=== PATIENT | male | born 1975 | race Caucasian/White ===

== ENCOUNTER 2018-05-30 10:20 | Outpatient (RCR) | payer OTHER, SELFPAY | END 2018-07-02 13:30 | disposition home or self-care (01) | LOC: PT 10:20 | PROVIDERS: Family Provider Nurse Practitioner Family; PCP Nurse Practitioner Family; Visit Provider Nurse Practitioner Family | DX: M54.5 Low back pain (principal); M51.26 Other intervertebral disc displacement, lumbar region | CPT/HCPCS: 97163 ==

== ENCOUNTER 2018-08-29 13:00 | Outpatient (RCR) | payer OTHER, SELFPAY | END 2018-09-04 15:02 | disposition home or self-care (01) | LOC: PT 13:00 | PROVIDERS: Visit Provider Nurse Practitioner Family | DX: M51.36 Other intervertebral disc degeneration, lumbar region (principal) | CPT/HCPCS: 97010; 97012; 97014; 97110; 97163; G0283 ==

== ENCOUNTER 2018-11-22 11:00 | Outpatient (RCR) | payer OTHER, SELFPAY | END 2018-11-22 11:05 | disposition home or self-care (01) | LOC: PT.CARL 11:00 | PROVIDERS: Visit Provider Nurse Practitioner Family | DX: S33 Dislocation and sprain of joints and ligaments of lumbar spine and pelvis (principal) | CPT/HCPCS: 97110; 97163 ==

== ENCOUNTER → 2019-01-10 10:15 | Outpatient (CLI) | payer OTHER, SELFPAY ==
[2019-01-10 13:56] LABS: Basophils # 0.1 K/mm3 (0-0.2); Eosinophils # 0.2 K/mm3 (0.0-0.4); Eosinophils % 2.5 % (0.1-12.0); Hematocrit 45.3 % (42.0-52.0); Hemoglobin 15.3 g/dL (14.1-18.0); Lymphocytes # 1.9 K/mm3 (0.7-4.5); Lymphocytes % 23.8 % (10-50); Mean Corpuscular HGB Conc 33.7 g/dL (31.8-35.4); Mean Corpuscular Hemoglobin 31.6 pg (27.0-31.2); Mean Corpuscular Volume 93.5 fl (80-94); Mean Platelet Volume 7.9 fl (7.4-10.4); Monocytes # 0.5 K/mm3 (0.1-1.0); Monocytes % 6.1 % (1.7-9.3); Neutrophils # 5.2 K/mm3 (1.8-7.8); Neutrophils % 66.6 % (37.0-80.0); Platelet Count 300 K/mm3 (142-424); Red Blood Count 4.84 M/mm3 (4.60-6.20); Red Cell Distribution Width 14.4 % (11.5-17.5); White Blood Count 7.9 K/mm3 (4.8-10.8)
[2019-01-10 14:06] LABS: Alanine Aminotransferase 19 U/L (12-78); Albumin Level 3.6 gm/dL (3.4-5.0); Albumin/Globulin Ratio 1.1 (1.1-1.8); Alkaline Phosphatase 77 U/L (46-116); Aspartate Amino Transferase 26 U/L (15-37); Bilirubin,Total 0.9 mg/dL (0.2-1.0); Blood Urea Nitrogen 6 mg/dL (7-18); Calcium 8.9 mg/dL (8.5-10.1); Carbon Dioxide 27 mmol/L (21.0-32.0); Chloride 102 mmol/L (98-107); Estimated Glomerular Filt Rate 82 ml/min (>60); GFR (African American) 99 ML/MIN (>60); Globulin 3.3 gm/dl (1.3-3.2); Glucose 90 mg/dL (74-106); Sodium 139 mmol/L (136-145); Total Protein,Serum 6.9 gm/dL (6.4-8.2)
[2019-01-10 14:07] LABS: C-Reactive Protein < 0.2 mg/L (0.0-0.9)
[2019-01-10 14:59] LABS: Erythrocyte Sedimentation Rate 8 mm/hr (0-15)
== END ==
PROVIDERS: PCP Nurse Practitioner Family; Visit Provider Internal Medicine Infectious Disease
DX: L03.312 Cellulitis of back [any part except buttock and flank] (principal); T81.42XD Infection following a procedure, deep incisional surgical site, subsequent encounter; B95.0 Streptococcus, group A, as the cause of diseases classified elsewhere
CPT/HCPCS: 36415; 80053; 85025; 85651; 86140

== ENCOUNTER → 2019-12-02 13:55 | Outpatient (POV) | payer OTHER, SELFPAY ==
[2019-12-02 14:25] VITALS: BP 148/98; PULSE 103; RESP 18; O2SAT 99; BMI 18.8
--- NOTE | 2019-12-03 09:18 | HMH.PMCON ---
Assessment and Plan (1) Post laminectomy syndrome Current visit: Yes Status: Chronic Category: Medical Code(s): M96.1 - Postlaminectomy syndrome, not elsewhere classified - Assessment and plan all Dx Assessment and Plan for all problems:: We will schedule the patient for 2 weeks. He is going to review the material that I provided him in regards to a neurostimulator. I will follow-up with him at that time reassess his symptoms. He is been instructed to call the office if he has any issues prior to his next appointment. Dr. Stewart has reviewed this note and agrees with this plan of care. This note was dictated using voice recognition software and may contain errors or omissions HPI - Data of Consult Consult date: 12/02/19 Requesting Physician: Collette Taylor APRN Primary Care Provider: Rhoda Zuniga - Consult Narrative Reason for consult: Back pain, leg pain History of present illness: Mr. Hearn is a 43 year old male who presents today for consultation in regards to his back and leg pain. Patient had an injury at work and recently had surgery. His surgery took place December of last year he has had continual pain since. He states his pain is worse in his back and down his right leg. However he does go down both legs at times. Patient states increased activity standing or sitting for prolonged periods of time increases pain will gabapentin Aleve decreases pain. He has been to physical therapy with no true relief. Patient has had physical therapy, chiropractic therapy along with injections in the past. Patient did not get any relief from any of these. Patient and I discussed a spinal cord stimulator I do believe it would benefit him. I discussed in great detail the process in the trialing process. He does have a psychological evaluation at states that he should be a good candidate for this however he would need to do some additional therapy. Patient and I discussed a [employer] system I do believe that this would be the best for him given his age and the MRI compatibility of the system. Patient was given information in regards to this. He is going to return in 2 weeks to discuss this. He rates his pain today a 6 out of 10 CC: Collette Taylor APRN [facility] History I have reviewed the patient's past medical history: Yes *Have you ever received a pneumonia vaccine?: Yes *Have you received a flu vaccine this season?: Yes Other Medical History: Reports: Arthritis Other Surgeries: Yes: Other Amputation: No Fractures: No - *Social History Smoking Status: Current every day smoker Tobacco Type: cigarettes # Packs/Day (cigarettes): 1 Alcohol Intake: current Alcohol Intake Frequency:: 0-2 drinks per day *Occupational Status:: other Housing: house Household Members: other *Travel in the last 8 weeks: None Family Hx:: Unable to obtain Review of Systems - Review of Systems ROS General: no recent weight change, no fever, no sleep disturbances Respiratory: no cough, no shortness of air, no recurring pulmonary infections Cardiovascular/Peripheral Vascular: No chest pain, No palpitations, no edema, no shortness of breath. Gastrointestinal: no new onset incontinence, normal bowel movements reported Genitourinary: no new onset incontinence Musculoskeletal: Back pain, leg pain Psychiatric: normal mood/ affect, Neurological: [denies new onset weakness in extremities], [denies new onset balance issues] Meds Allergies Allergy/AdvReac Type Severity Reaction Status Date / Time No Known Allergies Allergy Unverified 09/05/17 15:01 Objective Vital signs: Pulse Resp BP Pulse Ox 103 H 18 148/98 H 99 12/02/19 14:25 12/02/19 14:25 12/02/19 14:25 12/02/19 14:25 Narrative: Physical Exam General: Alert and oriented x3, no acute distress, pleasant and cooperative, [on room air] Lungs: Resps E/U, Symmetrical chest expansion, Eyes: PERRL Musculoskeletal: Flexion and extensio
== END ==
PROVIDERS: PCP Nurse Practitioner Family; Visit Provider Clinical Nurse Specialist Family Health
DX: M96.1 Postlaminectomy syndrome, not elsewhere classified (principal)
CPT/HCPCS: 99202

== ENCOUNTER → 2020-01-06 10:33 | Outpatient (POV) | payer OTHER, SELFPAY ==
[2020-01-06 11:16] VITALS: BP 144/96; PULSE 78; RESP 18; TEMP 36.9; O2SAT 98; BMI 19.2
--- NOTE | 2020-01-06 11:18 | P.CONS_ITS ---
[facility] Pain Management SOAP Note Subjective:: he is a pleasant 44-year-old white male who presents today for follow-up after reviewing information in regards to neurostimulator. He had an injury at work and had surgery. His surgery took place December of last year. He states he is in continual pain since. He states his pain is worse in his back and down his right leg. Patient states increased activity standing or sitting for prolonged periods of time increased pain while gabapentin helps decrease his pain. He is tried physical therapy, chiropractic therapy, medication therapy, injections. Patient states that he is got no relief from these therapies. Patient and I discussed a neurostimulator which has been discussed with him in the past by other pain management physicians. He states he is uninterested it due to his potential for infection. Patient rates his pain a 7 out of 10 today. At this time there is nothing we can offer him at our clinic. I discussed with him if he is interested in medication management there are other physicians that are able to do that however this is not our policy. ROS General: no recent weight change, no fever, no sleep disturbances Respiratory: no cough, no shortness of air, no recurring pulmonary infections Cardiovascular/Peripheral Vascular: No chest pain, No palpitations, no edema, no shortness of breath. Gastrointestinal: no new onset incontinence, normal bowel movements reported Genitourinary: no new onset incontinence Musculoskeletal: Back pain, leg pain Psychiatric: normal mood/ affect Neurological: [denies new onset weakness in extremities], [denies new onset balance issues] Objective:: Physical Exam General: Alert and oriented x3, no acute distress, pleasant and cooperative, [on room air] Lungs: Resps E/U, Symmetrical chest expansion, Eyes: PERRL Musculoskeletal: Flexion and extension of lumbar spine somewhat guarded secondary to pain, deep tendon reflexes normal, strength in upper and lower extremities [5/5], [abnormal gait noted] Neurological: speech clear, customer support engineer equal, no gross sensory deficits Assessment:: Postlaminectomy syndrome Plan:: At this point there is nothing we can offer him in the clinic. I have given him names of other physicians if he wants to pursue medication management. Dr. Stewart has reviewed this note and agrees with this plan of care. This note was dictated using voice recognition software and may contain errors or omissions [facility] History I have reviewed the patient's past medical history: Yes *Have you ever received a pneumonia vaccine?: Yes *Have you received a flu vaccine this season?: Yes Other Medical History: Reports: Arthritis Other Surgeries: Yes: Other Amputation: No Fractures: No - *Social History Smoking Status: Current every day smoker Tobacco Type: cigarettes # Packs/Day (cigarettes): 1 Alcohol Intake: current Alcohol Intake Frequency:: 0-2 drinks per day *Occupational Status:: other Housing: house Household Members: other *Travel in the last 8 weeks: None Family Hx:: Unable to obtain
== END ==
PROVIDERS: PCP Nurse Practitioner Family; Visit Provider Clinical Nurse Specialist Family Health
DX: M96.1 Postlaminectomy syndrome, not elsewhere classified (principal)
CPT/HCPCS: 99212

== ENCOUNTER 2021-05-14 13:01 | Emergency (ER) | payer MEDICAID, SELFPAY ==
[2021-05-14 14:15] VITALS: BP 151/87; PULSE 76; RESP 16; TEMP 36.6; O2SAT 99; BMI 20.9
--- NOTE | 2021-05-14 14:47 | HMH.EDUTC ---
[facility] [place] Disposition Clinical Impression: Exposure to COVID-19 virus Disposition: Home, Self-Care Condition on Discharge: Good Instructions: DI for COVID-19 (Suspected or Confirmed ), Preventing the Spread of Coronavirus Discharge Instructions Additional Instructions: Drink plenty of fluids. Take tylenol for pain or fever. Return if you begin to have difficulty breathing. Follow up with your regular doctor. GO TO THE ER FOR ANY WORSENING SYMPTOMS Quarantine until you know the results of your covid-19 test. If it is positive, the health department should call you and give you further instructions about your length of Quarantine and other things. Notify your school or workplace of your results and follow their instructions regarding return to work/school. Referrals: Christine Amaya APRN [Primary Care Provider] - Time of Disposition: 14:48 Medical Decision Making - Medical Records Medical records reviewed: No: I reviewed the patient's medical records. - Chuck Inquiry Pt receiving controlled substance: No Vital Signs: 05/14/21 14:15 05/14/21 14:48 Temperature 97.8 F 97.8 F Temperature Source Oral Pulse Rate 76 Pulse Rate [Right Brachial] 76 Respiratory Rate 16 16 Blood Pressure 151/87 H Blood Pressure [Right Arm] 151/87 H Blood Pressure Mean [Right Arm] 108 Blood Pressure Source [Right Arm] Automatic Cuff Blood Pressure Position [Right Arm] Sitting 02 Sat by Pulse Oximetry 99 Oxygen Delivery Method Room Air [facility] [place] HPI - General Stated complaint: covid exposure Time Seen by Provider: 05/14/21 14:47 Mode of Arrival: Ambulatory Source of Information: Patient Limitations: No Limitations Description of Symptoms (Recalled from Triage Doc. by RN): COVID TEST D/T EXPOSURE. DENIES SYMPTOMS HEENT Symptoms (Recalled from RN notes): No Resp Symptoms (Recalled from RN notes): No Skin Symptoms (Recalled from RN notes): No MS Symptoms (Recalled from RN notes): No Functional Status (Recalled from RN notes): WNL - History of Present Illness Provider Complaint: He was exposed to covid-19 at his job 5 days ago. He denies any symptoms, but he needs to be tested to be allowed to return to work. - Related Data Allergies Allergy/AdvReac Type Severity Reaction Status Date / Time No Known Allergies Allergy Verified 05/14/21 14:38 - Worker's Comp Is this a Worker's Comp case?: No [facility] History - Hepatitis A Screen Drug use history?: No High risk sexual behaviors?: No History of sexually transmitted infection?: No Currently employed?: No Childcare worker?: No Do you have indoor plumbing?: Yes Do you have electricity?: Yes Attestation statement:: This patient has been screened for Hepatitis A risk factors. I have reviewed the patient's past medical history: Yes Other Medical History: Reports: Arthritis Other Surgeries: Yes: Other Amputation: No Fractures: No - Social History Smoking Status: Current every day smoker Tobacco Type: cigarettes # Packs/Day (cigarettes): 1 Alcohol Intake: current Alcohol Intake Frequency:: 0-2 drinks per day Occupational Status: other Housing: house Household Members: other Family Hx:: Unable to obtain ROS Obtained: Yes All systems reviewed & no additional complaints - Constitutional Constitutional: Reports system reviewed and no additional complaints, except as docu - Eyes Eyes: Reports system reviewed and no additional complaints, except as docu - ENT Ears, Nose, Mouth, and Throat: Reports system reviewed and no additional complaints, except as docu - Cardiovascular Cardiovascular: Reports system reviewed and no additional complaints, except as docu - Respiratory Respiratory: Reports system reviewed and no additional complaints, except as docu - Gastrointestinal Gastrointestingal: Reports: system reviewed and no additional complaints, except as docu Physical Exam - General General appearance: alert, in no apparent distres
[2021-05-14 14:48] VITALS: BP 151/87; PULSE 76; RESP 16; TEMP 36.6; O2SAT 99
== END 2021-05-14 14:52 | disposition home or self-care (01) ==
PROVIDERS: Emergency Provider Nurse Practitioner Family; PCP Nurse Practitioner
DX: Z20.822 Contact with and (suspected) exposure to COVID-19 (principal); F17.210 Nicotine dependence, cigarettes, uncomplicated
CPT/HCPCS: 99202; G0463; U0003

== ENCOUNTER 2021-07-14 13:54 | Emergency (ER) | payer MEDICAID, SELFPAY ==
[2021-07-14 14:25] VITALS: BP 0/0; PULSE 0; RESP 0; TEMP -17.7; TEMP 0
== END 2021-07-14 14:27 | disposition left against medical advice (07) ==
LOC: UTC 13:57
PROVIDERS: Emergency Provider Nurse Practitioner Family; PCP Nurse Practitioner Family
DX: Z53.21 Procedure and treatment not carried out due to patient leaving prior to being seen by health care provider (principal)

== ENCOUNTER → 2022-10-04 09:34 | Outpatient (CLI) | payer MEDICAID, SELFPAY ==
--- NOTE | 2022-10-04 09:43 | US_ITS ---
FINAL REPORT CLINICAL HISTORY: L INGUINAL HERNIA FINDINGS: US EXTREMITY, NONVASCULAR, COMPLETE Sonographic images were obtained of the bilateral inguinal canals. There is an enlarged 3.6 cm lymph node with a benign ultrasound appearance in the right inguinal canal. There is no fluid collection or mass. There are several small benign-appearing lymph nodes in the left inguinal canal measuring up to 1.9 cm. There is likely a left inguinal hernia that may contain a loop of bowel. IMPRESSION: Bilateral inguinal lymph nodes having a benign ultrasound appearance. Probable left inguinal hernia. Consider CT. Reviewed, Interpreted and Dictated by Shobha Feliz MD Transcribed by Tony Javier Authenticated and [facility]
== END ==
PROVIDERS: PCP Nurse Practitioner Family; Visit Provider Nurse Practitioner Family
DX: K40.90 Unilateral inguinal hernia, without obstruction or gangrene, not specified as recurrent (principal)
CPT/HCPCS: 76700

== ENCOUNTER → 2022-11-09 14:07 | Outpatient (CLI) | payer MEDICAID, SELFPAY ==
[2022-11-09 14:12] LABS: Microscopic, Urine URINE MICROSCOPIC (MICROSCOPIC)
[2022-11-09 15:39] LABS: Anion Gap 7.2 mEq/L (5-15); Blood Urea Nitrogen 8 mg/dl (9-20); Calcium 9.1 mg/dl (8.4-10.2); Carbon Dioxide 26 mmol/L (22.0-30.0); Chloride 103 mmol/L (98-107); Estimated Glomerular Filt Rate 104 ml/min (>60); GFR (African American) 126 ML/MIN (>60); Glucose 72 mg/dl (74-100); Potassium 4.2 mmoL/L (3.5-5.1); Sodium 132 mmol/L (136-145)
[2022-11-09 15:43] LABS: Basophils # 0.1 K/mm3 (0-0.2); Basophils % 1.4 % (0.1-2.0); Eosinophils # 0.3 K/mm3 (0.0-0.4); Eosinophils % 3.3 % (0.1-12.0); Hematocrit 48.7 % (42.0-52.0); Lymphocytes # 1.5 K/mm3 (0.7-4.5); Lymphocytes % 20.2 % (10-50); Mean Corpuscular HGB Conc 32.9 g/dL (31.8-35.4); Mean Corpuscular Volume 97.3 fl (80-94); Mean Platelet Volume 8.4 fl (7.4-10.4); Monocytes # 0.6 K/mm3 (0.1-1.0); Monocytes % 7.4 % (1.7-9.3); Neutrophils # 5.1 K/mm3 (1.8-7.8); Neutrophils % 67.8 % (37.0-80.0); Platelet Count 271 K/mm3 (142-424); Red Cell Distribution Width 13.9 % (11.5-17.5); White Blood Count 7.6 K/mm3 (4.8-10.8)
[2022-11-09 19:13] LABS: Appearance,Urine CLEAR (Clear); Bilirubin,Urine Negative (Negative); Blood, Urine Negative (Negative); Color,Urine YELLOW (Yellow); Glucose,Urine (UA) Negative (Negative); Ketones,Urine Negative (Negative); Leukocyte Esterase,Urine Negative (Negative); Nitrate,Urine Negative (Negative); Protein,Urine Negative (Negative); Specific Gravity, Urine 1.015 (1.005-1.030); Urobilinogen,Urine 0.2 EU/dl (0.2)
[2022-11-09 19:40] LABS: Squamous Epithelial Cell,Urine Occasional #/hpf (0-5)
== END ==
PROVIDERS: PCP Nurse Practitioner Family; Visit Provider Surgery
DX: Z01.812 Encounter for preprocedural laboratory examination (principal); K40.90 Unilateral inguinal hernia, without obstruction or gangrene, not specified as recurrent
CPT/HCPCS: 36415; 80048; 81001; 85025

== ENCOUNTER 2022-11-10 09:14 | Day surgery (SDC) | payer MEDICAID, SELFPAY ==
[2022-11-08 14:00] VITALS: BMI 20.3
[2022-11-10] VITALS (10 sets, daily range): BP systolic 111–154; BP diastolic 71–92; PULSE 78–109; RESP 16–18; TEMP 36.2–43; O2SAT 94–97
--- NOTE | 2022-11-10 10:49 | EXP.ANES.CKL ---
[facility] Disclaimer: The information contained in this section may have been updated after the patient was seen, as this information can be updated by other users. Medical History Bipolar 1 disorder Surgical History History of back surgery History of mandibular surgery Family History Other Family history of cancer Family history of diabetes mellitus type II Family history of myocardial infarction Family history of stroke Social History (Updated 11/10/22 @ 09:46 by Rimma Zhao RN) Smoking Status: Current every day smoker tobacco type: cigarettes packs per day: 1 pack-years: 20 alcohol intake: current substance use type: denies use current occupational status: disabled Travel in the last 8 weeks: None household members: other housing: house marital status: education level: high school special betty needs: No agree to transfusion: No do you feel safe at home: Yes victim of physical abuse: No victim of emotional abuse: No victim of sexual abuse: No would you like helpful sources: No [facility] Anesthesia Checklist Patient Identification Patient Identification: Arm Band Structural Data Admitted From: Home Planned Operative Procedure/s: Left Open Inguinal Hernia Repair Consent for Planned Operative Procedure(s) Verified: Yes Verified Documents: Surgical Consent and History and Physical NPO Status Verified Time NPO: 00:00 Additional verifications Anesthesia Reactions: No Hx Blood Transfusions: No Blood Transfusion Reaction: No Airway Assessment C-Spine Mobility Assessed: Yes TMJ Mobility Assessed: Yes Dentition: Poor Dentition Neurological Assessment Level of Consciousness: Awake and Alert Anesthesia Plan Anesthesia Risk discussed: Yes Anesthesia Plan: Verified ASA Class: II Anesthesia Type: General
--- NOTE | 2022-11-10 12:13 | P.PN_ITS ---
[facility] Disclaimer: The information contained in this section may have been updated after the patient was seen, as this information can be updated by other users. Medical History Bipolar 1 disorder Surgical History History of back surgery History of mandibular surgery Family History Other Family history of cancer Family history of diabetes mellitus type II Family history of myocardial infarction Family history of stroke Social History (Updated 11/10/22 @ 09:46 by Rimma Zhao RN) Smoking Status: Current every day smoker tobacco type: cigarettes packs per day: 1 pack-years: 20 alcohol intake: current substance use type: denies use current occupational status: disabled Travel in the last 8 weeks: None household members: other housing: house marital status: education level: high school special betty needs: No agree to transfusion: No do you feel safe at home: Yes victim of physical abuse: No victim of emotional abuse: No victim of sexual abuse: No would you like helpful sources: No [facility] Anesthesia Checklist Patient Identification Patient Identification: Arm Band Structural Data Admitted From: Home Planned Operative Procedure/s: Left Open Inguinal Hernia Repair Consent for Planned Operative Procedure(s) Verified: Yes Verified Documents: Surgical Consent and History and Physical NPO Status Verified Time NPO: 00:00 Additional verifications Anesthesia Reactions: No Hx Blood Transfusions: No Blood Transfusion Reaction: No Airway Assessment C-Spine Mobility Assessed: Yes TMJ Mobility Assessed: Yes Dentition: Poor Dentition
--- NOTE | 2022-11-10 14:14 | SUR.OPER ---
1330- family updated of pt current status via ce escobedo in preop
--- NOTE | 2022-11-10 14:26 | P.OP_ITS ---
Date of procedure: 11/10/22 Pre-op Diagnosis:: Left inguinal hernia Post-op Diagnosis:: Same Procedure performed:: Open left inguinal hernia repair Surgeon:: Marco Antonio Godoy MD Anesthesia: LMA Estimated blood loss (mL): 15 Operative findings:: Complex indirect defect Severe soft tissue thickening throughout canal Operative note:: After informed consent was obtained the patient was taken to the operating room and placed in the supine position. General anesthesia was induced and his abdomen and groin/scrotum were prepped and draped in a sterile fashion. After infiltration with local anesthetic an oblique incision was made in the left gr oin. The deep subcutaneous tissue was dissected with electrocautery through Venancio's fascia to the level of the external aponeurosis. The external aponeurosis was sharply opened to the level of the external ring. The contents of the canal were carefully elevated. Severe soft tissue thickening confirmed. A combination of sharp dissection, blunt dissection, and electrocautery was utilized to dissect the hernia sac free from surrounding tissue. Dense adhesions throughout this region were noted. The distal margin of the sac was carefully opened with Metzenbaum scissors to facilitate dissection. Once this dissection was complete the defect was reapproximated with running nondyed Vicryl suture. A large PerFix plug was then secured in position with interrupted Ethibond. The PerFix overlay was secured to the shelving edge inferiorly and fascial margin superiorly with interrupted Ethibond. The external aponeurosis was reapproximated with running Vicryl suture. Venancio's fascia was closed in the same manner. 3-0 Monocryl STRATAFIX was then used to close skin and sterile dressings were applied. The patient was transferred to recovery in stable condition after removal of his laryngeal mask airway. Condition: stable Disposition: PACU Specimens:: None Complications:: No immediate
--- NOTE | 2022-11-10 14:30 | EXP.ANES.I ---
[facility] Anesthesia Record Part I Anesthesia Record I Intake, IV Amount: 1,300 Estimated blood loss (mL): 15 Urine output (mL): 1,000 Blood Products used (#): none Blood Pressure: 121/86 SaO2: 97 Pulse Rate: 79 Respiratory Rate: 18 Temperature: 98.8 F Patient is:: Drowsy and Stable Stable to PACU at:: 14:25
[2022-11-10 16:33] LABS: Microscopic,Cath URINE MICROSCOPIC (MICROSCOPIC)
[2022-11-10 16:39] LABS: Appearance,Urine/Cath CLEAR (Clear); Bilirubin,Cath Negative (Negative); Blood, Urine/Cath Negative (Negative); Color,Urine/Cath YELLOW (Yellow); Glucose,Urine/Cath (UA) Negative (Negative); Ketones,Urine/Cath Negative (Negative); Leukocyte Esterase,Cath Negative (Negative); Nitrate,Cath Negative (Negative); Protein,Urine/Cath Negative (Negative); Specific Gravity, Urine/Cath <= 1.005 (1.005-1.030); Urobilinogen,Cath 0.2 EU/dl (0.2)
--- NOTE | 2022-11-11 13:30 | P.PNANES_ITS ---
[facility] Anesthesia Record Part II Anesthesia Record Part II Discharge Time: 14:55 Destination: Surgical Day Care (OP Surgery) PACU nurse assessment reviewed?: Yes Patient Condition:: Good Anesthesia Complications:: None Swallowing reflex intact?: Yes Cyanosis?: No Blood Pressure: 142/85 Pulse Rate: 99 Temperature: 97.2 F Mental Status: Alert & Oriented Pain level:: 0 Nausea and/or vomitting:: None Intake, IV Amount: 0
[2022-11-11 13:31] VITALS: BP 142/85; PULSE 99; TEMP 36.2
== END 2022-11-10 15:29 | disposition home or self-care (01) ==
PROVIDERS: PCP Nurse Practitioner Family; Visit Provider Surgery
PROC: (CPT 49505; principal; 2022-11-10 10:45)
DX: K40.90 Unilateral inguinal hernia, without obstruction or gangrene, not specified as recurrent (principal); F17.210 Nicotine dependence, cigarettes, uncomplicated; Z79.899 Other long term (current) drug therapy
CPT/HCPCS: 49505; 81001; 96374; J2405

== ENCOUNTER 2024-01-05 16:44 | Emergency (ER) | payer MEDICAID, SELFPAY ==
[2024-01-05 16:45] VITALS: BP 134/99; PULSE 72; RESP 17; TEMP 36.6; O2SAT 98; BMI 20.9
--- NOTE | 2024-01-05 17:24 | ED_ITS ---
Discharge Plan Disposition Patient Disposition: Home, Self-Care Chief Complaint: Eye Problems Prescriptions Prescriptions: No Action Vraylar 1.5 mg capsule 1.5 mg PO DAILY lamotrigine 25 mg tablet 25 mg PO DAILY hydrocodone-acetaminophen 5-325 mg tablet 1 tab PO Q6H PRN (Reason: post-op pain) Qty: 17 0RF Referrals Follow up/Referrals: Rhoda Zuniga [Primary Care Provider] - See instructions Activity Restrictions/Add. Instructions Additional Instructions/Restrictions: Ointment 3 times daily for 5 days. Call your family doctor to establish care for this visit to the emergency department and schedule follow-up within 48 hours to ensure improvement. If you have any worsening of your condition or any other concerning signs or symptoms, return to the emergency department or your primary care doctor for further evaluation. Clinical Impressions Clinical Impression: Irritation of right eye, Acute conjunctivitis of right eye Discharge ED Provider: Osbaldo Parra General Adult HPI General Chief complaint: Eye Problems Stated complaint: RT eye irritation Time Seen by Provider: 01/05/24 16:51 Mode of Arrival: Ambulatory Source of Information: Patient Limitations: No Limitations Description of Symptoms (Recalled from ER Triage Doc. by RN): Patient reports redness and irritation of right eye for 3 days. Patient states he feels like something is scratching his eye when he blinks or rubs eye. Redness noted upon assessment. History of Present Illness HPI narrative: 40-year-old male no relevant medical history presenting with right eye irritation. Daughter has a viral infection, I saw her a couple days ago. Patient states that his eye irritation started then. He uses [place] blower at work, thinks this may be related. No qipzt-tl-zimge contact, or other construction activities. no photophobia, vision changes, or any other concerns. Please note that above description of symptoms, in this electronic medical record under categorization of recalled from ER triage doctor by RN are reflective of an initial nursing assessment, however, is not reflective of my full history and physical exam that was personally taken and clarified. Consequentially, this preceding description of symptoms, which may include the patient's categorized chief complaint in the EMR, do not reflect my personal clinical impression, and the ultimate description of history of present illness and patient stated complaints should be deferred to this section of the note. Unless stated otherwise or congruent with this section of the note, additional signs, symptoms, or incongruence should be interpreted as inaccurate with my clinical impression. Related Data Home Medications Medication Instructions Recorded Confirmed cariprazine 1.5 mg capsule 1.5 mg PO DAILY Depression 10/19/22 11/10/22 (Vraylar) lamotrigine 25 mg tablet 25 mg PO DAILY Depression 11/08/22 11/10/22 Previous Rx's Medication Instructions Recorded hydrocodone 5 mg-acetaminophen 325 1 tab PO Q6H PRN post-op pain #17 11/10/22 mg tablet tabs Allergies Allergy/AdvReac Type Severity Reaction Status Date / Time No Known Allergies Allergy Verified 11/10/22 09:36 [facility] Disclaimer: The information contained in this section may have been updated after the patient was seen, as this information can be updated by other users. Medical History (Updated 01/05/24 @ 17:28 by Osbaldo Parra MD) Bipolar 1 disorder Surgical History History of back surgery History of mandibular surgery Family History Other Family history of cancer Family history of diabetes mellitus type II Family history of myocardial infarction Family history of stroke Social History (Updated 11/10/22 @ 09:46 by Rimma Zhao RN) Smoking Status: Current every day smoker tobacco type: cigarettes packs per day: 1 alcohol intake: current substance use type: denies use current occupational status: disabled Travel in the last 8 weeks: None household members: other housing: house marital status: education level: high school special betty needs: No agree to transfusion: No do you feel safe at home: Yes victim of physical abuse: No victim of emotional abuse: No victim of sexual abuse: No would you like helpful sources: No ROS Obtained: Yes All systems reviewed & no additional complaints except as documented Physical Exam General General appearance: alert and in no apparent distress Head Head exam: atraumatic and normocephalic Eye Eye exam: Present PERRL, EOMI and conjunctival redness (Right eye. No evidence of hyphema, proptosis, entrapment, conjunctival hemorrhage, pupillary changes, cellulitic change, obvious foreign body, or otherwise irregular ocular findings. Fluorescein exam without focal uptake.) ENT ENT exam: Present mucous membranes moist Neck Neck exam: Present normal inspection, full ROM and trachea midline Respiratory Respiratory exam: Absent respiratory distress, wheezes, stridor, accessory muscle use or prolonged expiratory phase Cardiovascular Cardiovascular exam: Present normal rhythm Abdominal Exam Abdominal exam: Present soft; Absent distention, tenderness, guarding, rebound or rigidity Extremities Exam Extremities exam: Absent edema Neurological Exam Neurological exam: Present alert, oriented X3, CN II-XII intact and normal gait; Absent motor sensory deficit Skin Skin exam: Present warm and dry; Absent diaphoresis or erythema Medical Decision Making Medical Records Medical records reviewed: Yes I reviewed the patient's medical records. Chuck Inquiry Pt receiving controlled substance: No Chuck was queried for this patient: No Vital Signs: 01/05/24 16:45 Temperature 97.9 F Temperature Source Oral Pulse Rate [Right] 72 Respiratory Rate 17 Blood Pressure [Right Arm] 134/99 H Blood Pressure Mean [Right Arm] 110 Blood Pressure Source [Right Arm] Automatic Cuff 02 Sat by Pulse Oximetry 98 Oxygen Delivery Method Room Air Orders (Tests/Meds): ED MEDICATIONS Discontinued Medications Generic Name Dose Route Start Last Admin Trade Name Freq PRN Reason Stop Dose Admin Fluorescein Sodium 1 mg 01/05/24 16:58 Fluorescein Sodium 1mg Strip OP 01/05/24 16:59 ONCE ONE Tetracaine HCl 0 ml 01/05/24 16:58 Tetracaine 0.5% Opth Noreen 15ml OP 01/05/24 16:59 ONCE ONE Medical Decision Narrative: Right eye. No evidence of hyphema, proptosis, entrapment, conjunctival hemorrhage, pupillary changes, cellulitic change, obvious foreign body, or otherwise irregular ocular findings. Fluorescein exam without focal uptake. History obtained with patient. Physical exam significant for Right eye. No evidence of hyphema, proptosis, entrapment, conjunctival hemorrhage, pupillary changes, cellulitic change, obvious foreign body, or otherwise irregular ocular findings. Fluorescein exam without focal uptake. Given this, this most likely represents viral conjunctivitis versus irritant conjunctivitis in the setting of dirt or other abnormality from working. Patient was given erythromycin ointment. Because patient at baseline without signs or symptoms of clinical decompensation, deemed appropriate for discharge. Results were relayed to patient who voiced understanding and were agreeable to outpatient management and follow up. I discussed my clinical impression with patient and answered all questions. At this time, the evidence for any other entities in the differential is insufficient to warrant any further testing or ED observation. This was explained as well. Advisory was given that persistent or worsening symptoms require further evaluation. I confirmed the understanding of this discussion. Critical Care Critical Care Time Critical Care Time: No
[2024-01-05 17:34] VITALS: BP 139/80; PULSE 74; RESP 16; TEMP 36.4; O2SAT 98
== END 2024-01-05 17:35 | disposition home or self-care (01) ==
PROVIDERS: Emergency Provider Emergency Medicine; PCP Nurse Practitioner Family
DX: H10.31 Unspecified acute conjunctivitis, right eye (principal); H53.141 Visual discomfort, right eye; F17.210 Nicotine dependence, cigarettes, uncomplicated
CPT/HCPCS: 99283

== ENCOUNTER 2024-04-15 09:06 | Outpatient (CLI) | payer BC, SELFPAY ==
--- NOTE | 2024-04-15 09:15 | XR_ITS ---
FINAL REPORT CLINICAL HISTORY: right wrist ganglion cyst COMPARISON: None FINDINGS: AP, oblique, and lateral views of the left wrist were obtained. There is no prior exam for comparison. There is no acute fracture or dislocation. The joint spaces are preserved. The soft tissues are normal. IMPRESSION: No acute osseous abnormality of the left wrist. If pain persists, MR is recommended. Reviewed, Interpreted and Dictated by Shobha Feliz MD Transcribed by Sherie Flaherty Authenticated and [facility]
== END 2024-04-15 23:59 | disposition home or self-care (01) ==
LOC: RAD 09:07
PROVIDERS: PCP Family Medicine; Visit Provider Physician Assistant
DX: M25.531 Pain in right wrist (principal)
CPT/HCPCS: 73110

== ENCOUNTER 2025-01-05 22:54 | Emergency (ER) | payer MEDICAID, SELFPAY ==
--- NOTE | 2025-01-05 22:46 | PC.NURSE ---
Pt brought back to room by EMS Pt states he has been drinking all day and had a witnessed seizure by EMS Pt then ripped out IV and walked to lobby
[2025-01-05 22:47] VITALS: BP 123/90; PULSE 88; RESP 20; TEMP 36.7; O2SAT 99
[2025-01-05 22:49] VITALS: BP 123/90; PULSE 88; RESP 20; TEMP 36.7; O2SAT 99
[2025-01-05 22:52] VITALS: BP 123/90; PULSE 88; RESP 0; RESP 20; TEMP 36.7; O2SAT 0; O2SAT 99; BMI 22.7
== END 2025-01-05 23:00 | disposition left against medical advice (07) ==
LOC: ER 22:55
PROVIDERS: Emergency Provider Emergency Medicine
DX: Z53.21 Procedure and treatment not carried out due to patient leaving prior to being seen by health care provider (principal)
CPT/HCPCS: 99211

== ENCOUNTER 2025-07-14 15:09 | Outpatient (CLI) | payer MEDICAID, SELFPAY ==
--- NOTE | 2025-07-14 15:13 | XR_ITS ---
FINAL REPORT CLINICAL HISTORY: Low back pain COMPARISON: None FINDINGS: 3 views of the lumbar spine were obtained. There is no evidence of fracture. There is no malalignment. The vertebrae are normal in height. Moderate disc space narrowing at L5-S1. Moderate facet sclerosis is noted in the lower lumbar spine. No paraspinous soft tissue abnormalities identified. IMPRESSION: Moderate degenerative changes without acute bony abnormality. Reviewed, Interpreted and Dictated by Melvin Gotti MD Transcribed by Sapna Washington Authenticated and [facility]
--- OUTSIDE RECORDS SUMMARY | 2025-07-14 15:56 | XMS_ITS | Clinical Summary ---
Author Organization [facility] Address [address] [place] [address] Care Team Providers Care Cardiac Care Nurse Name Role Phone Rhoda Zuniga APRN Primary Care Provider [phone] Allergies No known active allergies Medications cetirizine (zyrTEC) 10 MG tablet Take 10 mg by mouth Daily. 2 09/07/2018 Active cyclobenzaprine (FLEXERIL) 10 MG tablet Take 1 tablet by mouth 3 (Three) Times a Day As Needed for Muscle Spasms. 60 tablet 1 01/01/2019 Active rOPINIRole (REQUIP) 1 MG tablet Take 1 mg by mouth Daily. 5 03/25/2019 Active OXcarbazepine (TRILEPTAL) 300 MG tablet Take 300 mg by mouth 2 (Two) Times a Day. Active Dietary Management Product (RHEUMATE) capsule Take 1 capsule twice daily 180 capsule 1 05/07/2019 Active vitamin B-6 (PYRIDOXINE) 100 MG tablet Take 1 tablet by mouth Daily. 30 tablet 5 05/07/2019 Active Active Problems Problem Noted Date Diagnosed Date Diabetes mellitus type 2 in nonobese 05/07/2019 Current every day smoker 05/07/2019 Tobacco abuse counseling 05/07/2019 Physical deconditioning 05/07/2019 Chronic lumbar radiculopathy 05/07/2019 Postlaminectomy syndrome of lumbar region 2018 History of lumbar discectomy 05/06/2019 Alcohol abuse 04/18/2019 Cervical radiculopathy 04/18/2019 Headache 04/18/2019 Hyperreflexia 04/18/2019 Mixed anxiety depressive disorder 04/18/2019 Seizure disorder 04/18/2019 Resolved Problems Problem Noted Date Diagnosed Date Resolved Date Wound infection after surgery 01/04/2019 06/21/2019 Family History Medical History Relation Name Comments Alcohol abuse Mother Cancer Mother Diabetes Mother Hypertension Mother Mental illness Mother Seizures Mother Stroke Mother Relation Name Status Comments Mother Social History Tobacco Use Types Packs/Day Years Used Date Smoking Tobacco: Every Day Cigarettes 0.5 20 Smokeless Tobacco: Never Tobacco Cessation:Ready to Q uit: Yes; Counseling Given: Yes Alcohol Use Standard Drinks/Week Comments Yes 14 (1 standard drink = 0.6 oz pu re alcohol) Abuse Screen Answer Date Recorded Unsafe at Home or Work/School Not on file Feels Threatened by Someone? Not on file 05/2023 Does Anyone Keep You from Co ntacting Others or Doint Things Outside the Home? Not on file 06/26/2023 Physical Sign of Abuse Present Not on file 1 Housing Stability Answer Date Recorded Current Living Arrangements Not on file 05/2023 Potentially Unsafe Housing Conditions Not on bk e 06/26/2023 Family and Community Support Answer Moi e Recorded Help with Day-to-Day Activities Not on file 06/26/2023 Lonely or Isolated Not on file 06/26/2023 Employment Answer Date Recorded Do you want help finding or keeping work or a jasmin b? Not on file 06/26/2023 Disabilities Answer Date Recorded Concentrating, Remembering, or Making Decisions Difficulty Not on file 06/26/2023 Doing Errands Independently Difficulty Not on fi le 06/26/2023 Education Answer Date Recorded Help with school or training? Not on file Preferred Language Not on file 06/26/2023 Sex and Gender Information Value Date Recorded Sex Assigned at Not on file Legal Sex Male 11:35 AM EDT Gender Identity Not on file Sexual Orientation Not on file Last Filed Vital Signs Vital Sign Reading Time Taken Comments Blood Pressure 120/80 11/26/2019 1:14 PM EDT Pulse 65 05/07/2019 7:16 AM EDT Temperature 36.7 C (98.1 F) 11/26/2019 1:14 PM EDT Respiratory Rate 18 05/07/2019 7:16 AM EDT Oxygen Saturation 98% 05/07/2019 7:16 AM EDT Inhaled Oxygen Concentration - - Weight 66.2 kg (146 lb) 11/26/2019 1:14 PM EDT Height 182.9 cm (6') 11/26/2019 1:14 PM EDT Body Mass Index 19.8 11/26/2019 1:14 PM EDT Plan of Treatment Health Maintenance Due Date Last Done Comments TDAP/TD VACCINES (1 - Tdap) 12/05/1994 ANNUAL PHYSICAL 12/13/2018 HEPATITIS C SCREENING 12/13/2018 COLOGUARD 12/05/2020 COLON CANCER SCREENING 5 YEA R SIGMOIDOSCOPY 12/05/2020 COLONOSCOPY 12/05/2020 COLORECTAL CANCER SCREENING 12/05/2020 CT COLONOGRAPHY 12/05/2020 FECAL OCCULT BLOOD TEST 12/05/2020 FIT Testing (1 year) 12/05/2020 INFLUENZA VACCINE 04/18/2025 HEMOGLOBIN A1C Discontinued 12/21/2018 Pneumococcal Vaccine 0-49 Aged Out No longer eligible based on patient's age to complete this topic Medical Devices Implanted Type Area Protection Mgr Device Identifier Shelf Expiration Date Model / Serial / Lot Implant Implant Chin Wax Bone Aesculap 2.5gm - [id number] Implanted:Qty: 1 on 12/26/2018 by Varinder Loja MD at [facility] Implant [employer] A B [employer] [place] [id number] / / Procedures Procedure Name Priority Date/Time Associated Diagnosis Comments HEMOGLOBIN A1C Routine 12/21/2018 12:09 PM EDT Herniation of intervertebral disc of lumbar spine L5/S1 right from Last 3 Months or Most Recently Relevant to Health Maintenance Results * Hemoglobin A1c (12/21/2018 12:09 PM EDT) Hemoglobin A1C 4.90 4.80 - 5.60 % 12/21/2018 12:51 PM EDT [facility] Blood Venipuncture / Unknown 12/21/2018 12:09 PM EDT 12/21/2018 12:20 PM EDT Narrative [facility] - 12/21/2018 12:51 PM EDT The [place] [employer] recommends maintenance of Hemoglobin A1C at 7.0% or lower. Goals for Hemoglobin A1C reduction may need to be modified if hypoglycemia is a problem. us Varinder Loja MD LAB BLOOD ORDERABLES Final Resul t [facility]
[address] [place] [address], from Last 3 Months or Most Recently Relevant to Health Maintenance Insurance [employer] Advance Directives * CPR (Attempt to Resuscitate) (Latest Code Status on File) Date Activated Date Inactivated Comments 01/03/2019 10:20 AM 01/04/2019 7:23 PM Question Answer Comments Code Status (Patient has no pulse and is not breathing): CPR (Attempt to Resuscitate) Medical Interventions (Patie nt has pulse or is breathing): Full Care Teams Cardiac Care Nurse Relationship Specialty Start Date End Date Rhoda Zuniga APRN [address] [place] [address] PCP - General Nurse Practitioner 11/07/19
--- OUTSIDE RECORDS SUMMARY | 2025-07-14 15:56 | XMS_ITS | Clinical Summary ---
Author Organization [facility] Address [address] [place] [address] Phone Care Team Providers Care Pest Controller Name Role Phone Geronimo Stockton MD [ ] Conditions or Problems Problem Name Problem Code Onset Date Status Entry Date Provider Comment Standard Description Annotate Nicotine dependence, cigarettes F17.210 (ICD-10-CM) 01/14 Active 01/14 Anthony Martin Nicotine dependence, cigarettes, uncomplicated DM Type II 27606948 (SNOMED CT) 01/07 Active 01/07 Vanda Bernard Type 2 diabetes mellitus Infection following a procedure, deep incisional surgical site, subsequent encounter 830386570 (SNOMED CT) 01/04 Active 01/04 Es W Deep incisional surgical site infection Wound infection/Cellu litis, back 31097837 (SNOMED CT) 01/04 Active 01/04 Es W Cellulitis of back, except buttock Group A streptococcus infection 607778541 (SNOMED CT) 01/04 Active 01/04 Es W Streptococcus pyogenes infection Medications Medication Instructions Start Date Stop Date Generic Name [facility] Provider CEFTRIAXONE SODIUM SOLUTION RECONSTITUTED 2GM IV daily/OPAT 01/15 CEFTRIAXONE SODIUM SOLR [id number] Karolina Ponce RN AMOXICILLIN 500 MG CAPS Take one pill twice daily. AMOXICILLIN [id number] Geronimo Stockton MD METFORMIN HCL 500 MG TABS Take one by mouth 3 times daily, morning, afternoon and evening. METFORMIN HCL [id number] Clare Ferris HYDROCODONE-ACETAM INOPHEN 5-325 MG TABS Q6H/PRN HYDROCODONE-ACETA MINOPHEN [id number] Clare Ferris CYCLOBENZAPRINE HCL 10 MG TABS Take one by mouth 3 times daily, morning, afternoon and evening./PRN CYCLOBENZAPRINE HCL [id number] Clare Ferris CETIRIZINE HCL 10 MG TABS Take one by mouth daily CETIRIZINE HCL [id number] Clare Ferris FLORASTOR 250 MG CAPS by mouth twice a day SACCHAROMYCES BOULARDII [id number] Clare Ferris CLINDAMYCIN HCL 300 MG CAPS Take one by mouth 3 times daily, morning, afternoon and evening. CLINDAMYCIN HCL [id number] Clare Ferris CEFTRIAXONE SODIUM SOLUTION RECONSTITUTED 2GM IV daily/OPAT 01/15 CEFTRIAXONE SODIUM SOLR [id number] Tammy Roblero RN Medications Administered No information available. Allergies, Adverse Reactions, Alerts No information available. Results Date Name Value Unit Range Flag Description Clinical Lists Update: Prelo ad HGBA1C 4.90 % Hemoglobin A1c/Hemoglobin, total in Blood - % Chart Maintenance: [facility] labs from 01/10/19 BASOPHIL % 1.0 % Basophils/ 100 leukocytes in Blood by Manual count MONOCYTE % 6.1 % Monocytes/ 100 leukocytes in Blood by Automated count LYMPHS % 23.8 % Lymphocytes/ 100 leukocytes in Blood by Automated count Lab Report: CBC WITH AUTO DI FFERENTIAL IMMATUREGRAN 0.04 10*3/MM3 0.00-0.05 Immature granulocytes [#/volume] in Blood BASO# 0.08 10*3/mm3 0.00-0.20 Basophils [#/vol ume] in Blood EOS ABSLT 0.07 10*3/uL 0.00-0.40 Eosinophi ls [#/volume] in Blood MONOSCT AUTO 0.78 10*3/uL 0.10-0.90 Monocy savana [#/volume] in Blood by Automated count LYMPHCT AUTO 2.13 10*3/mm3 0.70-3.10 Lymph ocytes [#/volume] in Blood by Automated count ABS NEUTROPH 3.37 10*3/uL 1.70-7.00 Neutro phils [#/volume] in Blood IMM GRANU % 0.6 % 0.0-0.5 H Immature granulocytes/100 leukocytes in Blood [id number] 1.2 % 0.0-1.5 GE use only - for [employer] import when terms are not otherwise specified % EOS AUTO 1.1 % 0.3-6.2 Eosinophil s/100 leukocytes in Blood by Automated count MONOCYTE BF 12.1 % 5.0-12.0 H monocyte s as percent of body fluid leukocytes LYMPHOCY BF 33.1 % 19.6-45.3 lymphoc ytes as percent of body fluid leukocytes PMN % 52.5 % 42.7-76.0 Neutrophils /100 leukocytes in Blood by Automated count PLATELETS 333 10*3/mm3 140-450 Platelets [#/volume] in Blood by Automated count RDW_ 14.7 12.3-15.4 RDW, no uni ts MCHC 34.1 G/DL 31.5-35.7 MCHC [Mass/ volume] by Automated count MCH 31.5 pg 26.6-33.0 MCH [Entiti c mass] by Automated count MCV 92.5 fL 79.0-97.0 MCV [Entiti c volume] by Automated count HCT 46.6 % 37.5-51.0 Hematocrit [Volume Fraction] of Blood by Automated count HGB 15.9 g/dL 13.0-17.7 Hemoglobin [Mass/volume] in Blood RBC 5.04 10*6/mm3 4.14-5.80 Erythrocyt es [#/volume] in Blood by Automated count WBC 6.43 10*3/mm3 3.40-10.8 0 Leukocytes [#/volume] in Blood by Automated count Lab Report: SEDIMENTATION RA TE ESR 4 mm/h 0-15 Erythrocyte sedimentation rate by Westergren method Lab Report: COMPREHENSIVE ME TABOLIC PANEL ANIONGAP 14.0 mmol/L anion gap, s gavin BUN/CREAT 8.6 7.0-25.0 Urea nitrogen/Creatinine [Mass Ratio] in Serum or Plasma GFRC 104 mL/min/1 .73m2 >60 Glomerular Filtration Rate Calculation BILI TOTAL 0.8 mg/dL 0.2-1.2 Bilirubin. total [Mass/volume] in Serum or Plasma ALK PHOS 81 U/L 39-117 Alkaline lucrecia sphatase [Enzymatic activity/volume] in Blood SGOT (AST) 26 U/L 1-40 Aspartate aminotransferase [Enzymatic activity/volume] in Serum or Plasma SGPT (ALT) 7 U/L 1-41 Alanine aminotransferase [Enzymatic activity/volume] in Serum or Plasma ALBUMIN 4.00 g/dL 3.50-5.20 Albumin [Mass/volume] in Serum or Plasma PROTEIN, TOT 7.2 g/dL 6.0-8.5 Protein [Mass/volume] in Serum or Plasma CALCIUM 9.4 mg/dL 8.6-10.5 Calcium [Moles/volume] in Serum or Plasma CO2 24.0 mmol/L 22.0-29.0 Carbon diox jerica, total [Moles/volume] in Venous blood CHLORIDE 101 mmol/L 98-107 Chloride [Moles/volume] in Serum or Plasma POTASSIUM 4.0 mmol/L 3.5-5.2 Potassium [Moles/volume] in Serum or Plasma SODIUM 139 mmol/L 136-145 Sodium [Moles/volume] in Serum or Plasma CREATININE 0.81 mg/dL 0.76-1.27 Creatini ne [Mass/volume] in Serum or Plasma BUN 7 mg/dL 6-20 Urea nitrogen [Mass/volume] in Serum or Plasma GLUCOSE SER 65 mg/dL 65-99 Glucose [Mass/volume] in Serum or Plasma Lab Report: C-REACTIVE PROTE IN CRP 0.05 mg/dL 0.00-0.50 C reactive protein [Mass/volume] in Serum or Plasma Office Visit: Room 8 MEDS REVIEW Done Documenta tion of current medications (procedure) SMOK ADVICE yes Smoking c essation education (procedure) ORALTOBACUSE Current Tobacco smoking status CIGARET SMKG yes Tobacco smoking status SMOK STATUS Current every day smoker Tobacco smoking status Plan of Care Type Date Detail Pending order Discontinue IV a ntibiotics Pending order Change oral anti biotics Pending order PICC Removal Pending order Continue IV anti biotics Pending order Ceftriaxone Pending order Continue oral an tibiotics Pending order Weekly PICC Line Care Pending order Weekly Labs (Con tinue) Pending order Ceftriaxone Pending order Stat Weekly Labs Patient education Medications Patient education HOW%20TO%20STO P%20SMOKING Patient education HOW%20TO%20STO P%20SMOKING Patient education HOW%20TO%20STO P%20SMOKING Patient education HOW%20TO%20STO P%20SMOKING Patient education Ceftriaxone%20 (Injection)%20(Injectable) Procedures Code Procedure Name Date Entry Date CPT-DC Discontinue IV antibiotics 2 CPT-coral Change oral antibiotics 2018 CPT-PICREM PICC Removal CPT-ca Continue IV antibiotics 2018 CPT-J0696 Ceftriaxone CPT-Cooral Continue oral antibiotics 20 04/01/23 CPT-wpc Weekly PICC Line Care 01/08 CPT-cwl Weekly Labs (Continue) 01/08 CPT-J0696 Ceftriaxone CPT- stat weekly Stat Weekly Labs Vital Signs Date Name Value Unit Description BMI (Body Mass Index) 20.10 kg/m2 Bod y Mass Index (Ratio) Body Temperature 97.8 [degF] temperat ure E&M BP Diastolic 80 mm[Hg] blood pressu re, diastolic BP Systolic 124 mm[Hg] blood pressur e, systolic Heart Rate 72 /min pulse rate Height 72 [in_us] height E&M Respiratory Rate 16 /min respirat ory rate E&M Weight Measured 148.2 [lb_av] weight E& M Weight Measured 148.2 [lb_av] weight E& M Immunizations No information available. Advance Directives Directive Description Start Date NO ADVANCED DIRECTIVES AT THIS TIME 2018
== END 2025-07-14 23:59 | disposition home or self-care (01) ==
LOC: RAD 15:10
PROVIDERS: PCP Nurse Practitioner Family; Visit Provider Nurse Practitioner Family
DX: M47.26 Other spondylosis with radiculopathy, lumbar region (principal)
CPT/HCPCS: 72100

== ENCOUNTER 2025-07-28 13:41 | Outpatient (CLI) | payer OTHER, SELFPAY ==
--- NOTE | 2025-07-28 13:45 | MR_ITS ---
FINAL REPORT TECHNIQUE: Multiplanar MR without gadolinium enhancement CLINICAL HISTORY: low back pain. LEFT SIDED LOW BACK PAIN WITH BILATERAL LEG PAIN AND TINGLING. SYMPTOMS XYRS. NO INJURY OR TRAUMA COMPARISON: None FINDINGS: Sagittal images show normal vertebral height. Alignment is normal. Marrow signal pattern is unremarkable. T12-L1: Unremarkable L1-2: A mild annular bulge is present. There is no central canal stenosis or neuroforaminal narrowing. L2-3: Unremarkable L3-4: Unremarkable L4-5: No focal disc protrusion is present. There is mild facet overgrowth. L5-S1: A moderate annular bulge is present with severe right and mild left facet osteoarthropathy, mild central canal stenosis, and severe right, mild left neural foraminal narrowing. IMPRESSION: Multilevel degenerative changes present, most pronounced at the L5-S1 level. Reviewed, Interpreted and Dictated by Lisa Pickering MD Transcribed by Sherie Flaherty Authenticated and [facility]
--- OUTSIDE RECORDS SUMMARY | 2025-07-28 13:46 | XMS_ITS | Clinical Summary ---
Author Organization [facility] Address [address] [place] [address] Care Team Providers Care Quality Assurance Analyst Name Role Phone Rhoda Zuniga APRN Primary Care Provider [phone] Allergies No known active allergies Medications cetirizine [...] this topic Medical Devices Implanted Type Area Parquetry Floor Layer Device Identifier Shelf Expiration Date Model / Serial / Lot Implant Implant Chin Wax Bone Aesculap 2.5gm - [id number] Implanted:Qty: 1 on 12/26/2018 by Varinder Loja MD at [facility] Implant [employer] [place] [id number] / / Procedures Procedure Name Priority Date/Time Associated Diagnosis Comments HEMOGLOBIN A1C Routine 12/21/2018 12:09 PM EDT Herniation of intervertebral disc of lumbar spine L5/S1 right from Last 3 Months or Most Recently Relevant to Health Maintenance Results * Hemoglobin A1c (12/21/2018 12:09 PM EDT) Hemoglobin A1C 4.90 4.80 - 5.60 % 12/21/2018 12:51 PM EDT [facility] Blood Venipuncture / Unknown 12/21/2018 12:09 PM EDT 12/21/2018 12:20 PM EDT Narrative [facility] - 12/21/2018 12:51 PM EDT The [place] [employer] recommends maintenance of Hemoglobin A1C at 7.0% or lower. Goals for Hemoglobin A1C reduction may need to be modified if hypoglycemia is a problem. us Varinder Loja MD LAB BLOOD ORDERABLES Final Resul t [facility]
[address] [place] [address], from Last 3 Months or Most Recently [...] pulse or is breathing): Full Care Teams Quality Assurance Analyst Relationship Specialty Start Date End Date Rhoda Zuniga APRN [address] [place] [address] PCP - General Nurse Practitioner 11/07/19
--- OUTSIDE RECORDS SUMMARY | 2025-07-28 13:46 | XMS_ITS | Clinical Summary ---
Author Organization [facility] Address [address] [place] [address] Phone Care Team Providers Care Cover Cutter Machine Name Role Phone Geronimo Stockton MD [ ] Conditions or Problems Problem Name Problem Code Onset Date Status Entry Date Provider Comment Standard Description Annotate Nicotine dependence, cigarettes F17.210 (ICD-10-CM) 01/14 Active 01/14 Anthony Martin Nicotine dependence, cigarettes, uncomplicated DM Type II 76394791 (SNOMED CT) 01/07 Active 01/07 Vanda Bernard Type 2 diabetes mellitus Infection following a procedure, deep incisional surgical site, subsequent encounter 365705639 (SNOMED CT) 01/04 Active 01/04 Es W Deep incisional surgical site infection Wound infection/Cellu litis, back 49298355 (SNOMED CT) 01/04 Active 01/04 Es W Cellulitis of back, except buttock Group A streptococcus infection 077149593 (SNOMED CT) 01/04 Active 01/04 Es W Streptococcus pyogenes infection Medications Medication Instructions Start Date Stop Date Generic Name [facility] Provider CEFTRIAXONE SODIUM SOLUTION RECONSTITUTED 2GM IV daily/OPAT 01/15 CEFTRIAXONE SODIUM SOLR [id number] Karolina Ponce RN AMOXICILLIN 500 MG CAPS Take one pill twice daily. AMOXICILLIN [id number] Geronimo Stockton MD METFORMIN HCL 500 MG TABS Take one by mouth 3 times daily, morning, afternoon and evening. METFORMIN HCL [id number] Clare Ferris HYDROCODONE-ACETAM INOPHEN 5-325 MG TABS Q6H/PRN HYDROCODONE-ACETA MINOPHEN [id number] Clare Ferris CYCLOBENZAPRINE HCL 10 MG TABS Take one by mouth 3 times daily, morning, afternoon and evening./PRN CYCLOBENZAPRINE HCL [id number] Clare Ferris CETIRIZINE HCL 10 MG TABS Take one by mouth daily CETIRIZINE HCL 53009172708 Clare Ferris FLORASTOR 250 MG CAPS by mouth twice a day SACCHAROMYCES BOULARDII [id number] Clare Ferris CLINDAMYCIN HCL 300 MG CAPS Take one by mouth 3 times daily, morning, afternoon and evening. CLINDAMYCIN HCL [id number] Clare Ferris CEFTRIAXONE SODIUM SOLUTION RECONSTITUTED 2GM IV daily/OPAT 01/15 CEFTRIAXONE SODIUM SOLR [id number] Tammy Roblero RN Medications Administered No information available. Allergies, Adverse Reactions, Alerts No information available. Results Date Name Value Unit Range Flag Description Clinical Lists Update: Prelo ad HGBA1C 4.90 % Hemoglobin A1c/Hemoglobin, total in Blood - % Chart Maintenance: [facility] labs from 01/10/19 BASOPHIL % 1.0 % [...]
== END 2025-07-28 23:59 | disposition home or self-care (01) ==
LOC: RAD 13:42
PROVIDERS: PCP Nurse Practitioner Family; Visit Provider Nurse Practitioner Family
DX: M47.26 Other spondylosis with radiculopathy, lumbar region (principal); M47.27 Other spondylosis with radiculopathy, lumbosacral region; M46.1 Sacroiliitis, not elsewhere classified
CPT/HCPCS: 72148